=== PATIENT | male | born 1950 | race Caucasian/White ===

== ENCOUNTER 2021-06-05 18:56 | Emergency (ER) | payer MEDICARE, BC ==
--- NOTE | 2021-06-05 20:14 | EDM.PDOC ---
ED HPI GENERAL MEDICAL PROBLEM - General Chief Complaint: Abdominal Pain Stated Complaint: RIGHT SIDE BACK PAIN & ABDOMINAL PAIN Time Seen by Provider: 06/05/21 20:17 - History of Present Illness INITIAL COMMENTS - FREE TEXT/NARRATIVE: 71-year-old male presents the emergency room with right upper quadrant and back pain. This pain and discomfort started several days ago it is not necessarily aggravated by activity but sometimes it does get sore with activity but sometimes it is very sore without activity. 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 He has not been eating much the last couple of days last meal he ate meatballs mashed potatoes and gravy and he is unclear if this made it worse. The pain seems to go into his back all on the right side it does not go up as high as the shoulder blade but does not go into the lumbar area as well. He has no associated symptoms of nausea or vomiting. He is not aware of any fevers or chills. Patient has had a few hernias repaired but other than this is had no abdominal surgeries. Right Lower Abdomen Pain Score (Numeric/FACES): 8 - Related Data Allergies Allergy/AdvReac Type Severity Reaction Status Date / Time No Known Allergies Allergy Verified 06/05/21 19:54 Home Meds: Home Meds Levothyroxine 375 mcg PO DAILY 02/23/14 [History] hydroCHLOROthiazide [Hydrochlorothiazide] 25 mg PO DAILY 02/23/14 [History] Omeprazole 20 mg PO DAILY 06/05/21 [History] Tamsulosin [Flomax] 0.4 mg PO DAILY 06/05/21 [History] Past Medical History HEENT History: Reports: Cataract Cardiovascular History: Reports: High Cholesterol, Hypertension Respiratory History: Reports: Sleep Apnea Genitourinary History: Reports: Other (See Below) Other Genitourinary History: frequent urination Endocrine/Metabolic History: Reports: Hypothyroidism - Past Surgical History GI Surgical History: Reports: Colonoscopy, EGD Musculoskeletal Surgical History: Reports: Other (See Below) Other Musculoskeletal Surgeries/Procedures:: back surgery Social & Family History - Tobacco Use Tobacco Use Status *Q: Former Tobacco User Used Tobacco, but Quit: Yes Month/Year Tobacco Last Used: 10years ago - Caffeine Use Caffeine Use: Reports: Coffee - Recreational Drug Use Recreational Drug Use: No ED ROS GENERAL - Review of Systems Review Of Systems: See Below Constitutional: Reports: No Symptoms. Denies: Fever, Chills HEENT: Reports: No Symptoms Respiratory: Reports: No Symptoms Cardiovascular: Reports: No Symptoms Endocrine: Reports: No Symptoms GI/Abdominal: Reports: Abdominal Pain. Denies: Nausea, Vomiting : Reports: No Symptoms Musculoskeletal: Reports: Back Pain Skin: Reports: No Symptoms Neurological: Reports: No Symptoms ED EXAM, GENERAL - Physical Exam Exam: See Below Exam Limited By: No Limitations General Appearance: Alert, No Apparent Distress Head: Atraumatic, Normocephalic Neck: Normal Inspection, Supple, Non-Tender, Full Range of Motion Respiratory/Chest: No Respiratory Distress, Lungs Clear, Normal Breath Sounds, No Accessory Muscle Use, Chest Non-Tender Cardiovascular: Normal Peripheral Pulses, Regular Rate, Rhythm, No Edema, No Gallop, No JVD, No Murmur, No Rub GI/Abdominal: Normal Bowel Sounds, Soft, Non-Tender. No: Tender (He has right upper quadrant tenderness with palpation no rigidity rebound or guarding appreciated no other areas of tenderness) Back Exam: Normal Inspection. No: CVA Tenderness (L), CVA Tenderness (R), Other (No vertebral tenderness no soft tissue tenderness no areas of muscle spasm) Extremities: Normal Inspection, No Pedal Edema Neurological: Alert, Oriented, Normal Cognition Course - Vital Signs Last Recorded V/S: Last Vital Signs Temp 36.3 C 06/05/21 19:48 Pulse 75 06/05/21 19:48 Resp 20 06/05/21 19:48 BP 168/91 H 06/05/21 19:48 Pulse Ox 96 06/05/21 19:48 - Orders/Labs/Meds Orders: Active Orders 24 hr Category Date Time Status Abdomen Ltd [US] Stat Exams 06/05/21 20:37 Taken Labs: Laboratory Tests 06/05/21 06/05/21 06/05/21 Range/Units 20:36 20:50 21:00 WBC 8.31 (4.23-9.07) K/mm3 RBC 4.93 (4.63-6.08) M/mm3 Hgb 14.5 (13.7-17.5) gm/dl Hct 43.3 (40.1-51.0) % MCV 87.8 (79.0-92.2) fl MCH 29.4 (25.7-32.2) pg MCHC 33.5 (32.2-35.5) g/dl RDW Std Deviation 42.3 (35.1-43.9) fL Plt Count 293 (163-337) K/mm3 MPV 10.8 (9.4-12.3) fl Neut % (Auto) 60.8 (34.0-67.9) % Lymph % (Auto) 29.0 (21.8-53.1) % [place] % (Auto) 7.2 (5.3-12.2) % Eos % (Auto) 2.5 (0.8-7.0) Baso % (Auto) 0.4 (0.1-1.2) % Neut # (Auto) 5.05 (1.78-5.38) K/mm3 Lymph # (Auto) 2.41 (1.32-3.57) K/mm3 [place] # (Auto) 0.60 (0.30-0.82) K/mm3 Eos # (Auto) 0.21 (0.04-0.54) K/mm3 Baso # (Auto) 0.03 (0.01-0.08) K/mm3 Sodium 139 (136-145) mEq/L Potassium 3.5 (3.5-5.1) mEq/L Chloride 105 (98-107) mEq/L Carbon Dioxide 27 (21-32) mEq/L Anion Gap 10.5 (5-15) BUN 16 (7-18) mg/dL Creatinine 1.0 (0.7-1.3) mg/dL Est Cr Clr Drug Dosing 68.94 mL/min Estimated GFR (MDRD) > 60 (>60) mL/min BUN/Creatinine Ratio 16.0 (14-18) Glucose 97 (70-99) mg/dL Calcium 8.9 (8.5-10.1) mg/dL Total Bilirubin 0.3 (0.2-1.0) mg/dL AST 18 (15-37) U/L ALT 29 (16-63) U/L Alkaline Phosphatase 70 (46-116) U/L Total Protein 6.9 (6.4-8.2) g/dl Albumin 3.5 (3.4-5.0) g/dl Globulin 3.4 gm/dL Albumin/Globulin Ratio 1.0 (1-2) Urine Color Yellow (Yellow) Urine Appearance Clear (Clear) Urine pH 6.5 (5.0-8.0) Ur Specific [place] 1.020 (1.005-1.030) Urine Protein Negative (Negative) Urine Glucose (UA) Negative (Negative) Urine Ketones Negative (Negative) Urine Occult Blood Negative (Negative) Urine Nitrite Negative (Negative) Urine Bilirubin Negative (Negative) Urine Urobilinogen 0.2 (0.2-1.0) Ur Leukocyte Esterase Negative (Negative) - Re-Assessments/Exams Free Text/Narrative Re-Assessment/Exam: 06/05/21 22:45 Laboratory. Evaluation and a gallbladder ultrasound are absolutely unrevealing Reexamination is unrevealing I cannot elicit his back pain or abdominal pain with palpation. Departure - Departure Time of Disposition: 22:46 Disposition: Home, Self-Care 01 Clinical Impression: Right-sided back pain, Right upper quadrant abdominal pain - Discharge Information Referrals: Noa Gibson MD [Primary Care Provider] - Forms: ED Department Discharge Additional Instructions: Return to the emergency room with any questions problems or worsening symptoms. Follow-up with Dr. Gibson early this next week. Tylenol as needed for discomfort. Try and pay special attention to anything that tends to aggravate this pain. Sepsis Event Note (ED) - Evaluation Sepsis Screening Result: No Definite Risk - Focused Exam Vital Signs: Vital Signs Temp Pulse Resp BP Pulse Ox 06/05/21 19:48 36.3 C 75 20 168/91 H 96 - My Orders Last 24 Hours: My Active Orders 06/05/21 20:37 Abdomen Ltd [US] Stat - Assessment/Plan Last 24 Hours: My Active Orders 06/05/21 20:37 Abdomen Ltd [US] Stat
--- NOTE | 2021-06-06 07:26 | US ---
Limited abdominal ultrasound: Multiple real-time images were obtained of the upper right abdomen. Comparison: No prior abdominal imaging is available. Findings: Liver is echogenic. Gallbladder shows no gallstones. No gallbladder wall thickening is seen. Common bile duct measures at the upper limits of normal at 8 mm. Right kidney shows a small cyst measuring 1.3 cm. Right kidney shows no hydronephrosis. Right kidney has a length of 10.1 cm. Proximal aorta has an AP dimension of 2.8 cm. Pancreas is obscured by bowel gas. Inferior vena cava is patent. Main portal vein shows normal hepatopedal flow. Impression: 1. No evidence of gallstones. No gallbladder wall thickening is seen. Common bile duct measures at the upper limits of normal at 8 mm. Biliary duct dilatation is likely incidental. 2. Evidence of fatty infiltration within the liver. 3. 1.3 cm cyst within the right kidney. 4. Obscured pancreas due to bowel gas. Diagnostic code #2 I agree with preliminary report from [facility], finalized on 06/05/21, 11:27 PM CDT, code 1
== END 2021-06-05 22:51 | disposition home or self-care (01) ==
LOC: JD.ED 18:56
DX: R10.11 Right upper quadrant pain (principal); M54.9 Dorsalgia, unspecified; I10 Essential (primary) hypertension; E03.9 Hypothyroidism, unspecified; Z87.891 Personal history of nicotine dependence; Z79.899 Other long term (current) drug therapy
CPT/HCPCS: 36415; 76705; 76705-26; 80053; 81003; 85025; 99284-25

== ENCOUNTER 2022-03-08 12:00 | Emergency (ER) | payer MEDICARE, BC | END 2022-03-08 20:08 | disposition home or self-care (01) | LOC: JD.ED 12:00 | DX: U07.1 COVID-19 (principal); R55 Syncope and collapse; R42 Dizziness and giddiness; I10 Essential (primary) hypertension; Z79.899 Other long term (current) drug therapy; Z79.82 Long term (current) use of aspirin; W01.10XA Fall on same level from slipping, tripping and stumbling with subsequent striking against unspecified object, initial encounter | CPT/HCPCS: 36415; 70450; 80053; 83735; 84484; 85025; 85379; 93005; 99284; U0002 ==

== ENCOUNTER 2023-08-13 09:32 | Emergency (ER) | payer MEDICARE, BC ==
[2023-08-13 10:42] LABS: BASOPHILS PERCENT AUTO 0.5 % (0.0-1.0); EOSINOPHILS ABSOLUTE AUTO 0.1 K/mm3 (0.0-0.4); EOSINOPHILS PERCENT AUTO 1.5 % (0.0-6.0); HEMATOCRIT 42.8 % (42.0-52.0); HEMOGLOBIN 14.5 gm/dl (14.0-18.0); IMMATURE GRAN ABSOLUTE AUTO 0.02 K/mm3 (0.00-0.05); IMMATURE GRAN PERCENT AUTO 0.3 % (0.0-0.4); LYMPHOCYTES ABSOLUTE AUTO 1.4 K/mm3 (1.0-4.8); LYMPHOCYTES PERCENT AUTO 19.4 % (24.0-44.0); MEAN CORPUSCULAR HEMOGLOBIN 28.7 pg (28.0-32.0); MEAN CORPUSCULAR HGB CONC 33.9 g/dl (32.0-36.0); MEAN CORPUSCULAR VOLUME 84.8 fl (83.0-99.0); MONOCYTES ABSOLUTE AUTO 0.5 K/mm3 (0.0-0.8); NEUTROPHILS ABSOLUTE AUTO 5.2 K/mm3 (1.8-7.7); NEUTROPHILS PERCENT AUTO 71.3 % (41.0-71.0); PLATELET COUNT,PLT 261 K/mm3 (150-400); RED BLOOD CELL COUNT 5.05 M/mm3 (4.52-5.90); WHITE BLOOD CELL COUNT,WBC 7.32 K/mm3 (3.9-11.3)
[2023-08-13 11:29] LABS: A/G RATIO 0.9 (1-2); ALBUMIN 3.4 g/dl (3.4-5.0); ANION GAP 13.9 (5-15); BILIRUBIN TOTAL 0.4 mg/dL (0.2-1.0); BUN/CREATININE RATIO 23.3 (14-18); CALCIUM 9.1 mg/dL (8.5-10.1); CREATININE 0.9 mg/dL (0.7-1.3); EST CRCL DRUG DOSING (CG) 72.01 mL/min; POTASSIUM,K 3.9 mEq/L (3.5-5.1); PROTEIN TOTAL,TP 7.3 g/dl (6.4-8.2)
== END 2023-08-13 12:28 | disposition home or self-care (01) ==
LOC: JD.ED 09:32
DX: I10 Essential (primary) hypertension (principal); E78.00 Pure hypercholesterolemia, unspecified; K21.9 Gastro-esophageal reflux disease without esophagitis; E03.9 Hypothyroidism, unspecified; Z86.16 Personal history of COVID-19; Z79.82 Long term (current) use of aspirin; Z79.899 Other long term (current) drug therapy
CPT/HCPCS: 36415; 80053; 84484; 85025; 93005; 99283